=== PATIENT | female | born 1945 | race Caucasian/White ===

== ENCOUNTER 2016-06-21 17:53 | Emergency (ER) | payer MEDICARE ==
[~2016-06-21] VITALS: Ht 157.5 cm; Wt 80.0 kg
[~2016-06-21 17:53] MED LIST: ATOR40TA49; CARD240C6 PO; CLON.5 PO; CRANCAP5 PO; CYMB60CA PO; FEXO180T PO; FISH1000 PO; GABA600T PO; HYDR1INJ IMPLANPUMP; OXYC-360 PO; POLY119S PO; PROT40TA PO; TAB-TAB PO; TIZA4CAP PO; TRAZ100T50 PO; VITA-13 PO
[2016-06-21 17:56] VITALS: BP 155/72; PULSE 68; RESP 20; TEMP 98; O2SAT 92
[2016-06-21] MEDS ORDERED: SODIUM CHLOR 0.9% 1000 ML INJ 1,000 ML IV SCH (20:10)
[2016-06-21] MEDS ORDERED: SODIUM CHLORIDE 0.9% FLUSH 5 ML FLUSH IVF PRN (20:15)
[2016-06-21] MEDS ORDERED: ONDANSETRON HCL 4 MG/2 ML VIAL IVP ONE (20:15)
[2016-06-21 20:43] VITALS: BP 141/72; PULSE 68; RESP 16; O2SAT 98
[2016-06-21] MEDS ORDERED: ATOR40TA16 PO (20:49)
[2016-06-21] MEDS ORDERED: CLON0.5T PO (20:49)
[2016-06-21] MEDS ORDERED: MORP1TAB24 PO (20:49)
[2016-06-21] MEDS ORDERED: VITA10003 PO (20:49)
[2016-06-21] MEDS ORDERED: GABA600T PO (20:49)
[2016-06-21] MEDS ORDERED: FEXO180T PO (20:49)
[2016-06-21] MEDS ORDERED: CARD240C6 PO (20:49)
[2016-06-21] MEDS ORDERED: CYMB60CA PO (20:49)
[2016-06-21] MEDS ORDERED: PERC5TAB12 PO (20:50)
[2016-06-21] MEDS ORDERED: TIZA4CAP3 PO (20:50)
[2016-06-21] MEDS ORDERED: PROT40TA PO (20:50)
[2016-06-21] MEDS ORDERED: TRAZ100T4 PO (20:50)
[2016-06-21 20:57] LABS: AUTOMATED NEUTROPHIL # 10.2 TH/MM3 (1.8-7.7); BASOPHIL % 0.1 % (0.0-2.0); EOSINOPHIL # 0.1 TH/MM3 (0-0.4); EOSINOPHIL % 0.9 % (0.0-4.0); HEMATOCRIT 41.1 % (35.0-46.0); HEMO FLAGS DIFF FINAL; LYMPHOCYTE # 2.8 TH/MM3 (1.0-4.8); MEAN CELL VOLUME 88.4 FL (80.0-100.0); MEAN CORPUSCULAR HEMOGLOBIN 29.9 PG (27.0-34.0); MEAN CORPUSCULAR HGB CONC 33.9 % (32.0-36.0); MONO % 5.7 % (0.0-8.0); NEUT % 73.3 % (16.0-70.0); PLATELET COUNT 318 TH/MM3 (150-450); RED BLOOD COUNT 4.65 MIL/MM3 (4.00-5.30); WHITE BLOOD COUNT 13.9 TH/MM3 (4.0-11.0)
[2016-06-21 21:00] LABS: APTT (PATIENT) 24.5 SEC (24.3-30.1); INTERNATIONAL NORMALIZED RATIO 0.9 RATIO; PROTHROMBIN TIME - PATIENT 10.3 SEC (9.8-11.6)
[2016-06-21 21:15] LABS: ALKALINE PHOSPHATASE 83 U/L (45-117); ALT (GPT) 26 U/L (10-53); ANION GAP 7 MEQ/L (5-15); AST (GOT) 14 U/L (15-37); BICARBONATE 32.9 MEQ/L (21.0-32.0); BLOOD UREA NITROGEN 8 MG/DL (7-18); CHLORIDE 95 MEQ/L (98-107); GLOMERULAR FILTRATION RATE 52 ML/MIN (>89); POTASSIUM 3.3 MEQ/L (3.5-5.1); SODIUM (NA) 135 MEQ/L (136-145); TOTAL BILIRUBIN ADULT 0.9 MG/DL (0.2-1.0)
--- NOTE | 2016-06-21 21:17 | PD ---
HPI Chief Complaint: GI Complaint Time Seen by Provider: 20:09 Travel History International Travel<30 days: No Contact w/Intl Traveler<30days: No Traveled to known affect area: No History of Present Illness HPI The patient is a 70 year old female who presents to the [facility] emergency department with a history of rectal pain and back pain that she reports became much worse than usual last night. The patient reports that she suffers with chronic constipation and has been increasingly constipated over the last week. She did move her bowels in small amount last night. She reports that it was extremely painful to do. She reports that she has burning around her rectum and pain in her low back associated with trying to move her bowels. She reports that last night she had a subjective fever. She reports having nausea but no vomiting. She denies having any dysuria, hematuria, urinary urgency, or frequency. The patient has a history of chronic constipation since childhood. Her last colonoscopy was reportedly a urine half ago and reportedly unremarkable. She reports that the only way that she can move her bowels is to make them a liquid. She reports that she's been using Ex- Lax and then Senokot to do this. She denies being on any other medications for constipation. She reports that her primary care doctor is Dr. Rashad boyd. She last saw him in October 2015. The patient has a history of chronic back pain and is on morphine for pain. She also has an implantable pain pump for pain. She denies having any recent changes in her pain management regimen. The patient reports having a chest pressure and increased anxiety attacks related to her constipation and rectal pain. The patient denies any recent cough, congestion, neck pain, shortness of breath, or neurologic symptoms. [facility] Past Medical History Narrative Medical The patient's past medical history is significant for chronic back pain, history of anxiety disorder, history of chronic constipation, history of depression, arthritis, factor V Leiden blood disorder, history of hypertension, chronic kidney disease, history of sciatica. Arthritis: Yes Anxiety: Yes Depression: Yes Cancer: No Cardiovascular Problems: Yes (HTN) High Cholesterol: Yes Diabetes: No Endocrine: No Gastrointestinal Disorders: Yes (achalasia ) Glaucoma: No Genitourinary: Yes (kidney failure 3 years ago some percentage of failure at this point, INCONT) Hepatitis: No Hiatal Hernia: No Hypertension: Yes Immune Disorder: No Medical other: Yes (CHRONIC BACK PAIN and migraines as a child into early 20's) Musculoskeletal: Yes (arthritis,back and hips plus knees) Neurologic: Yes (8 mos ago had a fall and hit face down/headaches/migraines) Psychiatric: Yes (depression and anxiety) Reproductive: No Respiratory: No Migraines: Yes Renal Failure: Yes Thyroid Disease: No Tetanus Vaccination: < 5 Years Influenza Vaccination: No Past Surgical History Narrative Surgical The patient's past surgical history is significant for hemorrhoidal tag removal , hysterectomy, breast augmentation, repeat breast augmentation in 2007, cosmetic surgery for her eyes, sinus surgery in 1992, spinal cord stimulator implant, hydromorphone pump placement in April 2010. Abdominal Surgery: Yes (BREAST REDUCTION X2,) AICD: No Body Medical Devices: PAIN PUMP R. ABD Cardiac Surgery: No Ear Surgery: No Endocrine Surgery: No Eye Surgery: Yes (LOWER BLEPH) Genitourinary Surgery: No Gynecologic Surgery: Yes (HYSTERECTOMY) Hysterectomy: Yes Joint Replacement: No Oral Surgery: Yes (SINUS SX X2) Pacemaker: No Thoracic Surgery: Yes (BREAST REDUCTION X2) Other Surgery: Yes Social History Alcohol Use: No Tobacco Use: No Substance Use: No Allergies-Medications (Allergen,Severity, Reaction): Coded Allergies: Keflex (Verified Allergy, Severe, PT STATES GEN ILLNESS, BLUE FINGERTIPS, 06/21/16) Septra (Verified Allergy, Severe, PT STATES GENERALIZED ILLNESS, 06/21/16) Sulfa (Verified Allergy, Unknown, Swelling,TEMP, 06/21/16) Reported Meds & Prescriptions Reported Meds & Active Scripts Active Reported Trazodone (Trazodone HCl) 100 Mg Tab 100 Mg PO HS Tizanidine (Tizanidine HCl) 4 Mg Cap 4 Mg PO TID Protonix (Pantoprazole Sodium) 40 Mg Tab 40 Mg PO DAILY Percocet (Oxycodone-Acetaminophen) 5-325 mg Tab 1-2 Tab PO Q6H PRN Morphine ER (Morphine Sulfate) 15 Mg Tab 15 Mg PO DAILY Gabapentin 600 Mg Tab 600 Mg PO TID Fexofenadine (Fexofenadine HCl) 180 Mg Tab 180 Mg PO DAILY Cardizem CD 24 HR (Diltiazem CD 24 HR) 240 Mg Caper 240 Mg PO DAILY Cymbalta DR (Duloxetine HCl) 60 Mg Capdr 60 Mg PO DAILY Clonazepam 0.5 Mg Tab 0.5 Mg PO TID Vitamin D-3 (Cholecalciferol) 1,000 Unit Tab 1,000 Units PO DAILY Atorvastatin (Atorvastatin Calcium) 40 Mg Tab 40 Mg PO HS Review of Systems Except as stated in HPI: all other systems reviewed are Neg General / Constitutional: No: Fever Eyes: No: Visual changes HENT: No: Headaches Cardiovascular: No: Chest Pain or Discomfort Respiratory: No: Shortness of Breath Gastrointestinal: Positive: Nausea, No: Vomiting, Diarrhea, Abdominal Pain, Constipation Genitourinary: No: Urgency, Frequency, Dysuria, Flank Pain Musculoskeletal: No: Pain Skin: No Rash Neurologic: No: Weakness, Focal Abnormalities, Coordination Problem, Change in Mentation, Slurred Speech, Sensory Disturbance Psychiatric: No: Depression Endocrine: No: Polydipsia Hematologic/Lymphatic: No: Easy Bruising Physical Exam Narrative General: The patient is a well-developed well-nourished female in no acute distress. Head and Neck exam: Head is normocephalic atraumatic. Eyes: EOMI, pupils are equal round and reactive to light. Nose: Midline septum with pink mucous membranes Mouth: Dentition unremarkable. Moist mucus membranes. Posterior oropharynx is not erythematous. No tonsillar hypertrophy. Uvula midline. Airway patent. Neck: No palpable lymphadenopathy. No nuchal rigidity. No thyromegaly. Cardiovascular: Regular rate and rhythm without murmurs, gallops, or rubs. No pulse deficit to the extremities. Lungs: Clear to auscultation bilaterally. No wheezes, rhonchi, or rales. Abdomen: Soft, without tenderness to palpation in all 4 quadrants of the abdomen. No guarding, rebound, or rigidity. Normal bowel sounds are audible. Extremities: No clubbing, cyanosis, or edema. 2+ pulses in all 4 extremities. Back: No spinous process tenderness to palpation. No costovertebral angle tenderness to palpation. Neurologic Exam: Grossly nonfocal. Skin Exam: No rash noted. Intact skin that is warm and dry. RECTAL EXAM: The patient has no rectal tenderness on palpation however she does have a noted anal tag, and noninflamed hemorrhoid, no masses are palpable. No palpable fecal impaction. Hemoccult testing was negative. Data Data Last Documented VS Vital Signs Date Time Temp Pulse Resp B/P Pulse Ox O2 Delivery O2 Flow Rate FiO2 06/22/16 00:14 84 18 136/78 98 Room Air 06/21/16 17:56 98.0 Orders Complete Blood Count With Diff (06/21/16 20:10) Comprehensive Metabolic Panel (06/21/16 20:10) Lipase (06/21/16 20:10) Prothrombin Time / Inr (Pt) (06/21/16 20:10) Act Partial Throm Time (Ptt) (06/21/16 20:10) Urinalysis - C+S If Indicated (06/21/16 20:10) Ct Abd/Pel W Iv Contrast(Rout) (06/21/16 20:10) Iv Access Insert/Monitor (06/21/16 20:10) Ecg Monitoring (06/21/16 20:10) Oximetry (06/21/16 20:10) Ondansetron Inj (Zofran Inj) (06/21/16 20:15) Sodium Chlor 0.9% 1000 Ml Inj (Ns 1000 M (06/21/16 20:10) Sodium Chloride 0.9% Flush (Ns Flush) (06/21/16 20:15) Electrocardiogram (06/21/16 20:10) Lactic Acid Sepsis Protocol (06/21/16 20:10) C-Reactive Protein (Crp) (06/21/16 20:10) Iohexol 350 Inj (Omnipaque 350 Inj) (06/21/16 23:55) Potassium Chloride (Kcl) (06/22/16 00:30) Labs Laboratory Tests Test 06/21/16 06/21/16 20:35 21:40 White Blood Count 13.9 TH/MM3 Red Blood Count 4.65 MIL/MM3 Hemoglobin 13.9 GM/DL Hematocrit 41.1 % Mean Corpuscular Volume 88.4 FL Mean Corpuscular Hemoglobin 29.9 PG Mean Corpuscular Hemoglobin 33.9 % Concent Red Cell Distribution Width 14.0 % Platelet Count 318 TH/MM3 Mean Platelet Volume 8.0 FL Neutrophils (%) (Auto) 73.3 % Lymphocytes (%) (Auto) 20.0 % Monocytes (%) (Auto) 5.7 % Eosinophils (%) (Auto) 0.9 % Basophils (%) (Auto) 0.1 % Neutrophils # (Auto) 10.2 TH/MM3 Lymphocytes # (Auto) 2.8 TH/MM3 Monocytes # (Auto) 0.8 TH/MM3 Eosinophils # (Auto) 0.1 TH/MM3 Basophils # (Auto) 0.0 TH/MM3 CBC Comment DIFF FINAL Differential Comment Prothrombin Time 10.3 SEC Prothromb Time International 0.9 RATIO Ratio Activated Partial 24.5 SEC Thromboplast Time Sodium Level 135 MEQ/L Potassium Level 3.3 MEQ/L Chloride Level 95 MEQ/L Carbon Dioxide Level 32.9 MEQ/L Anion Gap 7 MEQ/L Blood Urea Nitrogen 8 MG/DL Creatinine 1.06 MG/DL Estimat Glomerular Filtration 52 ML/MIN Rate Random Glucose 113 MG/DL Lactic Acid Level 1.0 mmol/L Calcium Level 9.0 MG/DL Total Bilirubin 0.9 MG/DL Aspartate Amino Transf 14 U/L (AST/SGOT) Alanine Aminotransferase 26 U/L (ALT/SGPT) Alkaline Phosphatase 83 U/L C-Reactive Protein LESS THAN 0.29 MG/DL Total Protein 7.7 GM/DL Albumin 4.0 GM/DL Lipase 81 U/L Urine Color COLORLESS Urine Turbidity CLEAR Urine pH 6.5 Urine Specific [place] 1.002 Urine Protein NEG mg/dL Urine Glucose (UA) NEG mg/dL Urine Ketones NEG mg/dL Urine Occult Blood NEG Urine Nitrite NEG Urine Bilirubin NEG Urine Urobilinogen LESS THAN 2.0 MG/DL Urine Leukocyte Esterase NEG Urine RBC 1 /hpf Urine WBC LESS THAN 1 /hpf Urine Squamous Epithelial <1 /hpf Cells Microscopic Urinalysis Comment CULT NOT INDICATED MDM Medical Decision Making Medical Screen Exam Complete: Yes Emergency Medical Condition: Yes Medical Record Reviewed: Yes Interpretation(s) Laboratory Tests Test 06/21/16 06/21/16 20:35 21:40 White Blood Count 13.9 TH/MM3 Red Blood Count 4.65 MIL/MM3 Hemoglobin 13.9 GM/DL Hematocrit 41.1 % Mean Corpuscular Volume 88.4 FL Mean Corpuscular Hemoglobin 29.9 PG Mean Corpuscular Hemoglobin 33.9 % Concent Red Cell Distribution Width 14.0 % Platelet Count 318 TH/MM3 Mean Platelet Volume 8.0 FL Neutrophils (%) (Auto) 73.3 % Lymphocytes (%) (Auto) 20.0 % Monocytes (%) (Auto) 5.7 % Eosinophils (%) (Auto) 0.9 % Basophils (%) (Auto) 0.1 % Neutrophils # (Auto) 10.2 TH/MM3 Lymphocytes # (Auto) 2.8 TH/MM3 Monocytes # (Auto) 0.8 TH/MM3 Eosinophils # (Auto) 0.1 TH/MM3 Basophils # (Auto) 0.0 TH/MM3 CBC Comment DIFF FINAL Differential Comment Prothrombin Time 10.3 SEC Prothromb Time International 0.9 RATIO Ratio Activated Partial 24.5 SEC Thromboplast Time Sodium Level 135 MEQ/L Potassium Level 3.3 MEQ/L Chloride Level 95 MEQ/L Carbon Dioxide Level 32.9 MEQ/L Anion Gap 7 MEQ/L Blood Urea Nitrogen 8 MG/DL Creatinine 1.06 MG/DL Estimat Glomerular Filtration 52 ML/MIN Rate Random Glucose 113 MG/DL Lactic Acid Level 1.0 mmol/L Calcium Level 9.0 MG/DL Total Bilirubin 0.9 MG/DL Aspartate Amino Transf 14 U/L (AST/SGOT) Alanine Aminotransferase 26 U/L (ALT/SGPT) Alkaline Phosphatase 83 U/L C-Reactive Protein LESS THAN 0.29 MG/DL Total Protein 7.7 GM/DL Albumin 4.0 GM/DL Lipase 81 U/L Urine Color COLORLESS Urine Turbidity CLEAR Urine pH 6.5 Urine Specific [place] 1.002 Urine Protein NEG mg/dL Urine Glucose (UA) NEG mg/dL Urine Ketones NEG mg/dL Urine Occult Blood NEG Urine Nitrite NEG Urine Bilirubin NEG Urine Urobilinogen LESS THAN 2.0 MG/DL Urine Leukocyte Esterase NEG Urine RBC 1 /hpf Urine WBC LESS THAN 1 /hpf Urine Squamous Epithelial <1 /hpf Cells Microscopic Urinalysis Comment CULT NOT INDICATED Last Impressions Abdomen/Pelvis CT 06/21/162009 Signed Impressions: Service Date/Time: Tuesday, June 21, 2016 23:38 - CONCLUSION: 1. No acute abnormality is seen. 2. Small hypodensities in the liver and spleen likely related to cysts and/or hemangiomas. Darius Rodriguez MD Differential Diagnosis Opiate-induced constipation, versus chronic constipation, versus colitis, versus diverticulitis, versus dehydration, versus electrolyte abnormality Narrative Course During the course of the patients emergency department visit, the patients history, examination, and differential diagnosis were reviewed with the patient. The patient had IV access obtained and blood work sent for analysis. The patient was placed on a groundwater monitoring technician with oximetry and blood pressure monitoring. An EKG was done on arrival. The patient's EKG shows a sinus bradycardia heart rate of 49 voltage criteria for LVH is present. No acute ST segment elevation is noted. T waves are inverted in V1, aVL. A CT scan of the abdomen and pelvis has been ordered. The patient was provided normal saline at 125 mL per hour, Zofran 4 mg IV for nausea. The patient was noted to have mild hypokalemia and was given potassium chloride 20 mEq by mouth 1. The patients laboratory studies were reviewed and remarkable for a white count of 13.9, hemoglobin 13.9, platelets 318 with neutrophils 73.3, CMP is remarkable for sodium of 135, potassium 3.3, chloride 95, bicarbonate 32.9, creatinine 1.06, glucose 113, lactic acid 1.0, AST 14, C-reactive protein is less than 0.29 decreasing the likelihood of a bacterial infection, lipase 81, PT PTT unremarkable. Urinalysis within normal limits. Radiology studies were reviewed and remarkable for a CT scan of the abdomen and pelvis that shows no acute abnormality. Given the patient's chronic opiate use for chronic pain and a history of constipation, the patient will be given a trial of Lubiprostone. The patient was given a prescription at discharge for was given a copy of her CT scan result to discuss further with her mutuel machine operator, Dr. Sánchez and her primary care physician. The patient is resting comfortably and feels better, is alert and in no distress. The patients results and examination findings were discussed with the patient and the patient's . The repeat examination is unremarkable and benign. The history, exam, diagnostic testing, and current condition do not suggest any significant pathology to warrant further testing, continued ED treatment, admission, or surgical evaluation at this point. The vital signs have been stable. The patient does not have uncontrollable pain, intractable vomiting, or other significant symptoms. The patient's condition is stable and appropriate for discharge. The patient will pursue further outpatient evaluation with a primary care physician or other designated or consulting physician as indicated in the discharge instructions. The patient expressed understanding and was agreeable with this plan. Diagnosis Primary Impression: Constipation Qualified Code: K59.03 - Drug-induced constipation Additional Impression: Rectal pain Referrals: Jessy Sánchez MD 1 week Primary Care Physician 3 days Patient Instructions: Constipation (ED), General Instructions, Rectal Pain (ED) Med/Other Pt SpecificInfo: Prescription(s) given Scripts Lubiprostone (Amitiza)8 Mcg Cap8 Mg PO BID 7 Days Ref 0 Prov:Meera Gaytan MD 06/22/16 Disposition: 01 DISCHARGE HOME Condition: Stable Meera Gaytan MD Jun 21, 2016 21:17
[2016-06-21 22:26] LABS: BLOOD, URINE NEG (NEG); COMMENT (UR) CULT NOT INDICATED; CULTURE IF INDICATED CULT NOT INDICATED; GLUCOSE,URINE NEG (NEG); KETONE, URINE NEG (NEG); NITRITE,URINE NEG (NEG); PH, URINE 6.5 (5.0-8.5); SQUAMOUS EPITHELIAL CELL URINE <1 /hpf (0-5); URINE COLOR COLORLESS (YELLW/STRAW)
[2016-06-21] MEDS ORDERED: IOHEXOL 350 MG/ML 10 ML VIAL (for RAD DIAG) IV ONE (23:55)
[2016-06-22 00:14] VITALS: BP 136/78; PULSE 84; RESP 18; O2SAT 98
--- NOTE | 2016-06-22 00:19 | RADRPT ---
EXAM DATE/TIME: 06/21/2016 23:38 [facility] COMPARISON: No previous studies available for comparison. INDICATIONS : Constipation IV CONTRAST: 95 cc Omnipaque 350 (iohexol) IV ORAL CONTRAST: No oral contrast ingested. RADIATION DOSE: 10.69 CTDIvol (mGy) MEDICAL HISTORY : None SURGICAL HISTORY : Hysterectomy. Morphine pump ENCOUNTER: Initial ACUITY: 3 days PAIN SCALE: 6/10 LOCATION: Bilateral lower quadrant TECHNIQUE: Volumetric scanning of the abdomen and pelvis was performed. Using automated exposure control and ad justment of the mA and/or kV according to patient size, radiation dose was kept as low as reasonably achievable to obtain optimal diagnostic quality images. FINDINGS: LOWER LUNGS: The visualized lower lungs are clear. LIVER: There is a 1.4 cm hypodensity at the lateral right lobe of the liver likely related to cyst or flaco ioma. SPLEEN: There is a subcentimeter hypodensity in the superior lateral aspect of the spleen. PANCREAS: Within normal limits. KIDNEYS: Normal in size and shape. There is no mass, stone or hydronephrosis. ADRENAL GLANDS: Within normal limits. VASCULAR: There is no aortic aneurysm. BOWEL/MESENTERY: The stomach, small bowel, and colon demonstrate no acute abnormality. There is no free intraperitone al air or fluid. ABDOMINAL WALL: There is a metallic device in the right anterior abdominal wall with the lead or catheter extending to the spinal canal. There appears to be a second piece of catheter or lead in the lumbar thecal sac. RETROPERITONEUM: There is no lymphadenopathy. BLADDER: No wall thickening or mass. REPRODUCTIVE: Within normal limits. INGUINAL: There is no lymphadenopathy or hernia. MUSCULOSKELETAL: Is a right hip prosthesis in place. There is degenerative change in the spine. CONCLUSION: 1. No acute abnormality is seen. 2. Small hypodensities in the liver and spleen likely related to cysts and/or hemangiomas. Darius Rodriguez MD on June 22, 2016 at 0:07 Board Certified Radiologist. This report was verified electronically.
[2016-06-22] MEDS ORDERED: POTASSIUM CHLORIDE 20 MEQ CONTROLLED RELEASE TAB PO ONE (00:30)
[2016-06-22] MEDS ORDERED: AMIT8CAP6 PO (00:41)
== END 2016-06-22 00:58 | disposition home or self-care (01) ==
LOC: NEPC 17:53
DX: K59.03 Drug induced constipation (principal); K62.89 Other specified diseases of anus and rectum; M54.5 Low back pain; R50.9 Fever, unspecified; E87.6 Hypokalemia; R00.1 Bradycardia, unspecified; I12.9 Hypertensive chronic kidney disease with stage 1 through stage 4 chronic kidney disease, or unspecified chronic kidney disease; N18.9 Chronic kidney disease, unspecified; E78.00 Pure hypercholesterolemia, unspecified; Z87.39 Personal history of other diseases of the musculoskeletal system and connective tissue; Z86.59 Personal history of other mental and behavioral disorders; Z86.2 Personal history of diseases of the blood and blood-forming organs and certain disorders involving the immune mechanism; Z87.19 Personal history of other diseases of the digestive system; Z87.448 Personal history of other diseases of urinary system; Z86.69 Personal history of other diseases of the nervous system and sense organs
CPT/HCPCS: 74177; 80053; 81001; 83605; 83690; 85025; 85610; 85730; 86140; 96361; 96374; 99284; J2405; J7030; Q9967

== ENCOUNTER 2018-03-01 06:56 | Observation (INO) ==
[2018-03-01] MEDS ORDERED: Dicyclomine Inj 20 MG/2 ML Ampul IM ONE (06:57)
--- NOTE | 2018-03-01 07:08 | ED ---
HPI General Chief Complaint: Abdominal Pain Stated Complaint: Abd pain Time Seen by Provider: 03/01/18 06:57 History of Present Illness HPI narrative: This is a 72-year-old with a history of, hypertension, presents today with complaints of abdominal pain with distention and nausea vomiting diarrhea. Patient was prepping for a upper and lower endoscopy for today. She apparently reports that overnight she had severe distention with associated nausea vomiting and diarrhea. She reports that the endoscopy and colonoscopy were to evaluate for a subacute GI bleed. She denies any fevers, chills. She denies any obvious blood in her stool or vomit. There are no other complaints at the time of examination. Related Data Home Medications Medication Instructions Recorded Confirmed Unable to Obtain Home Meds 03/01/18 03/01/18 Allergies Allergy/AdvReac Type Severity Reaction Status Date / Time cephalexin Allergy Severe PT STATES Verified 03/01/18 07:07 GEN ILLNESS, BLUE FINGERTIPS sulfamethoxazole Allergy Severe PT STATES Verified 03/01/18 07:07 GENERALIZED ILLNESS trimethoprim Allergy Severe PT STATES Verified 03/01/18 07:07 GENERALIZED ILLNESS Sulfa (Sulfonamide Allergy Unknown Swelling,TE Verified 03/01/18 07:07 Antibiotics) MP Review of Systems Constitutional Denies chills and Denies fever(s) Eyes Reports system reviewed and no additional complaints, except as docu ENT Reports system reviewed and no additional complaints, except as docu Cardiovascular Denies chest pain and Denies dyspnea Respiratory Denies chest congestion and Denies dyspnea Gastrointestinal Reports abdominal pain, Denies melena, Reports bloating, Denies hematochezia, Reports diarrhea, Reports nausea and Reports vomiting Genitourinary Reports system reviewed and no additional complaints, except as docu Musculoskeletal Reports system reviewed and no additional complaints, except [facility] Neurologic Reports system reviewed and no additional complaints, except as docu PMFSH Medical History Medical History Chronic recurrent major depressive disorder (Acute) Anxiety (Acute) Hypertension (Acute) CKD (chronic kidney disease) stage 3, GFR 30-59 ml/min (Acute) Chronic back pain (Acute) Depression (Acute) Factor V Leiden mutation (Acute) GERD (gastroesophageal reflux disease) (Acute) Hyperlipidemia (Acute) Presence of implanted infusion pump (Acute) Surgical History Surgical History History of hip replacement (Acute) History of vaginal hysterectomy (Acute) Hx of breast reduction, elective (Acute) Hx of colonoscopy (Acute) Status post breast reduction (Acute) Status post total hip replacement, bilateral (Acute) Family History Family History Father Laryngeal cancer Mother Alzheimer's dementia Family history of hypertension Social History Social History Substance History: No History of Abuse Second Hand Smoke Exposure: No Smoking Status: Former smoker Smoking End Date: 1979 How Often Do You Have a Drink Containing Alcohol: Monthly or less Recent Travel in [facility] within the Last 8 Weeks: No Recent Out of Country Travel within the Last 8 Weeks: No Exam Narrative Exam Narrative: GENERAL: Well-developed well-nourished female who appears weak in no acute respiratory distress. SKIN: Focused skin assessment warm/dry. HEAD: Atraumatic. Normocephalic. EYES: No scleral icterus. No injection or drainage. ENT: No nasal bleeding or discharge. Mucous membranes pink and moist. NECK: Trachea midline. Supple. CARDIOVASCULAR: Regular rate and rhythm. No murmur appreciated. RESPIRATORY: No accessory muscle use. Clear to auscultation. Breath sounds equal bilaterally. GASTROINTESTINAL: Abdomen soft, nondistended. She reports crampy discomfort. There is no rebound or guarding elicited on exam. MUSCULOSKELETAL: No obvious deformities. No clubbing. No cyanosis. No edema. NEUROLOGICAL: Awake and alert. No obvious cranial nerve deficits. Motor grossly within normal limits. Normal speech. Course Initial Documented Vital Signs Temperature 98.4 F 03/01/18 07:00 Pulse Rate 60 03/01/18 07:00 Respiratory Rate 14 03/01/18 07:00 Blood Pressure 151/67 H 03/01/18 07:00 Pulse Oximetry 95 03/01/18 07:00 Last Documented Vital Signs Temperature 98.4 F 03/01/18 07:00 Pulse Rate 60 03/01/18 07:00 Respiratory Rate 14 03/01/18 07:00 Blood Pressure 151/67 H 03/01/18 07:00 Pulse Oximetry 95 03/01/18 07:00 Medical Decision Making MDM Narrative Medical decision making narrative: 72-year-old female who presents with nausea vomiting diarrhea. Patient was prepping for a upper and lower endoscopy. The patient is noted to have a sodium of 122. Her BUN and creatinine are stable. Given the fact that her sodium is still low and her baseline is 130s, she will be admitted for observation. She was started on normal saline at 84 cc/h. She has been given Bentyl IM as well. Case was discussed with Dr. Leonid Dumont, [facility] admitting physician who agrees with the above plan. Medical Screen Exam Complete: Yes Emergency Medical Condition: Yes Differential Diagnosis Differential Diagnosis: Medication induced nausea vomiting diarrhea versus bowel obstruction versus perforated viscus Lab Data Result diagrams: 03/01/18 07:15 03/01/18 07:15 Lab Results 03/01/18 03/01/18 03/01/18 Range/Units 07:15 07:15 07:15 CBC w Diff Auto diff final WBC 5.8 (4.0-11.0) th/mm3 RBC 4.57 (4.00-5.30) mil/mm3 Hgb 12.8 (11.6-15.3) gm/dL Hct 36.8 (35.0-46.0) % MCV 80.5 (80.0-100.0) fL MCH 28.1 (27.0-34.0) pg MCHC 34.9 (32.0-36.0) % RDW 13.7 (11.6-17.2) % Plt Count 289 (150-450) th/mm3 MPV 7.4 (7.0-11.0) fL Neut % (Auto) 78.1 H (16.0-70.0) % Lymph % (Auto) 13.7 (9.0-44.0) % [place] % (Auto) 6.9 (0.0-8.0) % Eos % (Auto) 0.4 (0.0-4.0) % Baso % (Auto) 0.9 (0.0-2.0) % Neut # (Auto) 4.5 (1.8-7.7) th/mm3 Lymph # (Auto) 0.8 L (1.0-4.8) th/mm3 [place] # (Auto) 0.4 (0.0-0.9) th/mm3 Eos # (Auto) 0.0 (0.0-0.4) th/mm3 Baso # (Auto) 0.1 (0.0-0.2) th/mm3 WBC Differential . Differential Comment . Sodium 122 L* (136-145) meq/L Potassium 4.0 (3.5-5.1) meq/L Chloride 82 L (98-107) meq/L Carbon Dioxide 31.5 (21.0-32.0) meq/L Anion Gap 9 (5-15) meq/L BUN 9 (7-18) mg/dL Creatinine 0.84 (0.50-1.00) mg/dL Estimated GFR 67 L (>89) mL/min Random Glucose 113 H (74-106) mg/dL Calcium 9.1 (8.5-10.1) mg/dL Magnesium 2.4 (1.5-2.5) mg/dL Total Bilirubin 0.8 (0.2-1.0) mg/dL AST 19 (15-37) U/L ALT 21 (10-53) U/L Alkaline Phosphatase 122 H (45-117) U/L Total Creatine Kinase 110 (26-192) U/L CK-MB (CK-2) 1.4 (0.5-3.6) ng/mL Troponin I Less than 0.02 L (0.02-0.05) ng/mL Total Protein 7.5 (6.4-8.2) g/dL Albumin 3.7 (3.4-5.0) g/dL Lipase 49 L (73-393) U/L Imaging Data Radiologist's impression: Abdomen X-Ray 03/01/18 07:00 CONCLUSION: Minimal gas distention otherwise negative Discharge Plan Discharge Disposition Patient Disposition: 30 Still Patient Discharge Details Diagnosis: Nausea, vomiting and diarrhea, Hypertension, Hyponatremia Physicians Team ED Provider: Patrick Quintana Primary Care Provider: Rashad Marie Attending Provider: Leonid Dumont Status ED Status: Admitted Observation Patient
[2018-03-01 07:34] LABS: Baso # (Auto) 0.1 th/mm3 (0.0-0.2); Baso % (Auto) 0.9 % (0.0-2.0); Eos % (Auto) 0.4 % (0.0-4.0); Hematocrit 36.8 % (35.0-46.0); Hemoglobin 12.8 gm/dL (11.6-15.3); Lymph # (Auto) 0.8 th/mm3 (1.0-4.8); Lymph % (Auto) 13.7 % (9.0-44.0); Mean Corpuscular HGB Conc 34.9 % (32.0-36.0); Mean Corpuscular Hemoglobin 28.1 pg (27.0-34.0); Mean Corpuscular Volume 80.5 fL (80.0-100.0); Mean Platelet Volume 7.4 fL (7.0-11.0); Mono # (Auto) 0.4 th/mm3 (0.0-0.9); Mono % (Auto) 6.9 % (0.0-8.0); Neut # (Auto) 4.5 th/mm3 (1.8-7.7); Neut % (Auto) 78.1 % (16.0-70.0); Platelet Count 289 th/mm3 (150-450); Red Blood Count 4.57 mil/mm3 (4.00-5.30); Red Cell Distribution Width 13.7 % (11.6-17.2); White Blood Count 5.8 th/mm3 (4.0-11.0)
[2018-03-01] MEDS: Sod Chloride 0.9% Inj 1,000 ML IV.CONT SCH ×2 (07:34→21:00)
[2018-03-01 07:52] LABS: Creatine Kinase 110 U/L (26-192)
[2018-03-01 08:04] LABS: Creatine Kinase MB 1.4 ng/mL (0.5-3.6)
[2018-03-01 08:09] LABS: Anion Gap 9 meq/L (5-15); Blood Urea Nitrogen 9 mg/dL (7-18); Carbon Dioxide 31.5 meq/L (21.0-32.0); Chloride 82 meq/L (98-107); Glomerular Filtration Rate 67 mL/min (>89); Glucose,Random 113 mg/dL (74-106)
[2018-03-01 08:10] LABS: Alanine Aminotransferase 21 U/L (10-53); Albumin 3.7 g/dL (3.4-5.0); Alkaline Phosphatase 122 U/L (45-117); Aspartate Aminotransferase 19 U/L (15-37); Calcium 9.1 mg/dL (8.5-10.1); Lipase 49 U/L (73-393); Magnesium 2.4 mg/dL (1.5-2.5); Total Protein 7.5 g/dL (6.4-8.2)
[2018-03-01 08:11] LABS: Sodium 122 meq/L (136-145)
--- NOTE | 2018-03-01 08:33 | XR ---
EXAM DATE: 03/01/2018 7:35 AM EDT AGE/SEX: 72 years / Female INDICATIONS: Abdominal pain and distention, started after taking bowel prep for a colonoscopy. CLINICAL DATA: This is the patient's initial encounter. Patient reports that signs and symptoms have been present for 1 day and indicates a pain score of 7/10. MEDICAL/SURGICAL HISTORY: None. Hysterectomy. Morphine pump. Total hip replacement. COMPARISON: No prior exams available for comparison. FINDINGS: The lung bases are clear. Scattered gas-filled minimally dilated loops of transverse colon are noted. There is no free air. The portion of the bony skeleton visualized is unremarkable. .. CONCLUSION: Minimal gas distention otherwise negative Electronically signed by: Fer Davis MD 03/01/2018 8:32 AM EDT
--- NOTE | 2018-03-01 08:42 | P.HP ---
History of Present Illness Service: [facility] adult med Primary Care Physician: Rashad Marie MD Chief Complaint: abd pain, n/v/diarrhea History of Present Illness: This is a 72-year-old with a history of MDD, anxiety, hypertension, presents today with complaints of abdominal pain with distention and nausea vomiting diarrhea. Patient was prepping for a upper and lower endoscopy for today. She apparently reports that overnight she had severe distention with associated nausea vomiting and diarrhea. No fevers. She has chronic anemia which is reason for her planned scopes. She reports that the endoscopy and colonoscopy were to evaluate for a subacute GI bleed. She denies any fevers, chills. She denies any obvious blood in her stool or emesis. There are no other complaints at the time of examination. No CP or SOB. She is a bit tired as she didn't sleep much last night. She is notably on dilaudid pain pump and has been for years. she is not sure of rate/dose. - Diagnosis (1) Nausea, vomiting and diarrhea (2) Hyponatremia (3) Anxiety (4) Hypertension (5) Chronic recurrent major depressive disorder Review of Systems Constitutional: Reports body ache(s), Reports fatigue, Reports lack of energy, Reports malaise, Reports weakness, Denies anorexia, Denies chills, Denies daytime sleepiness, Denies excessive sweating, Denies fever(s), Denies headache( s), Denies increased appetite, Denies night sweats, Denies weight gain, Denies weight loss, Denies other Eyes: Reports dry eyes Cardiovascular: Denies chest pain, Denies chest pain at rest, Denies chest pain with activity, Denies excessive sweating, Denies fainting, Denies fast heart rate, Denies foot swelling, Denies generalized swelling, Denies irregular heart rhythm, Denies leg pain with activity, Denies leg sores, Denies leg swelling, Denies lightheadedness, Denies radiating jaw, neck or arm pain, Denies rapid, pounding, or irregular heartbeat, Denies shortness of breath, Denies shortness of breath with activity, Denies shortness of breath when lying down, Denies shortness of breath causing sudden awakening, Denies slow heart rate, Denies other Respiratory: Denies change in phlegm color, Denies chest congestion, Denies cough, Denies coughing up blood, Denies excessive phlegm production, Denies pain on inspiration, Denies pain with cough, Denies shortness of breath, Denies shortness of breath with activity, Denies snoring, Denies stridor, Denies wheezing, Denies other Gastrointestinal: Reports abdominal pain, Reports bloating, Reports change in bowel habits, Reports constipation, Reports cramping, Reports loose stools, Reports nausea, Reports vomiting, Denies belching, Denies black, tarry stools, Denies bright, red blood in stools, Denies constant urge to pass stool, Denies change in stools, Denies coffee ground vomit, Denies difficulty swallowing, Denies excessive passing of gas, Denies feeling full early, Denies heartburn, Denies incontinent of stools, Denies pain with swallowing, Denies vomiting blood , Denies other Genitourinary: Reports frequent nighttime urination Musculoskeletal: Reports abnormal walking, Reports body aches, Reports joint pain Psychiatric: Reports anxiety, Reports depression PMFSH - History History Provided By: Patient, Family Member, Apprentice Lineman [employer] / EMT - Medical History Medical History: Medical History (Last Updated 03/01/18 @ 08:29 by Leonid Dumont MD, PhD) Chronic recurrent major depressive disorder (Acute) Anxiety (Acute) Hypertension (Acute) CKD (chronic kidney disease) stage 3, GFR 30-59 ml/min Chronic back pain Depression Factor V Leiden mutation GERD (gastroesophageal reflux disease) Hyperlipidemia Presence of implanted infusion pump - Surgical History Surgical History: Surgical History (Last Updated 03/01/18 @ 08:36 by Leonid Dumont MD, PhD) History of hip replacement History of vaginal hysterectomy Hx of breast reduction, elective Hx of colonoscopy Status post breast reduction Status post total hip replacement, bilateral - Family History Family History: Family History (Last Updated 03/01/18 @ 08:28 by Leonid Dumont MD, PhD) Father Laryngeal cancer Mother Alzheimer's dementia Family history of hypertension - Social History I have reviewed the patient's Social History: Yes - Tobacco History Second Hand Smoke Exposure: No Tobacco Use In Past 30 Days: No Smoking Status: Former smoker Smoking End Date: 1979 - Alcohol History How Often Do You Have a Drink Containing Alcohol: Monthly or less - Substance Use History Substance History: No History of Abuse - Travel History Recent Travel in the [place] Within the Last 8 Weeks: No Recent Travel Out of the Country Within the Last 8 Weeks: No - Immunization History Tetanus Immunization: Unsure Medications and Allergies Active Medications: Active Medications Sodium Chloride (Ns Inj) 1,000 mls @ 84 mls/hr IV.CONT .[id number] [facility] Last Admin: 03/01/18 07:34 Dose: 84 mls/hr Sodium Chloride (Ns Flush) 2 ml IV.FLUSH PRN PRN PRN Reason: FLUSH AFTER USING IV ACCESS Allergies Allergy/AdvReac Type Severity Reaction Status Date / Time cephalexin Allergy Severe PT STATES Verified 03/01/18 07:07 GEN ILLNESS, BLUE FINGERTIPS sulfamethoxazole Allergy Severe PT STATES Verified 03/01/18 07:07 GENERALIZED ILLNESS trimethoprim Allergy Severe PT STATES Verified 03/01/18 07:07 GENERALIZED ILLNESS Sulfa (Sulfonamide Allergy Unknown Swelling,TE Verified 03/01/18 07:07 Antibiotics) MP Home Medications Medication Instructions Recorded Confirmed Type atorvastatin 40 mg PO DAILY 03/01/18 03/01/18 History cholecalciferol (vitamin D3) 1,000 unit PO DAILY 03/01/18 03/01/18 History [Vitamin D3] clonazepam 0.5 mg PO BID 03/01/18 03/01/18 History diltiazem HCl 240 mg PO DAILY 03/01/18 03/01/18 History duloxetine 60 mg PO DAILY 03/01/18 03/01/18 History gabapentin 600 mg PO TID 03/01/18 03/01/18 History lactulose 20 g PO BID 03/01/18 03/01/18 History latanoprost 1 drp LEFT EYE QPM 03/01/18 03/01/18 History oxycodone-acetaminophen 1 tab PO BID PRN 03/01/18 03/01/18 History pantoprazole 40 mg PO BID 03/01/18 03/01/18 History tamsulosin 0.4 mg PO DAILY 03/01/18 03/01/18 History tizanidine 4 mg PO TID PRN 03/01/18 03/01/18 History trazodone 100 mg PO HS 03/01/18 03/01/18 History Exam Vital signs: Vital Signs 03/01/18 07:00 Temperature 98.4 F Pulse Rate 60 Respiratory Rate 14 Blood Pressure 151/67 H Pulse Oximetry 95 Intake & Output 10/30/18 10/31/18 10/31/18 18:59 06:59 18:59 Weight 79.5 kg Narrative: GENERAL: a/o, appears mildly ill, sitting on bedside commode in ER room, cooperative SKIN: Warm and dry. HEAD: Atraumatic. Normocephalic. EYES: Pupils equal and round. No scleral icterus. No injection or drainage. ENT: No nasal bleeding or discharge. Mucous membranes pink and moist. NECK: Trachea midline. No JVD. CARDIOVASCULAR: Regular rate and rhythm. No significant murmurs. Rate in 60-70s RESPIRATORY: No accessory muscle use. Clear to auscultation. Breath sounds equal bilaterally. GASTROINTESTINAL: Abdomen soft, mildly distended, ttp in mid lower abd, no g/r, BS slightly hyperactive. MUSCULOSKELETAL: Extremities without clubbing, cyanosis, or edema. No obvious deformities. NEUROLOGICAL: Awake and alert. No obvious cranial nerve deficits. Motor grossly within normal limits. Five out of 5 muscle strength in the arms and legs. Normal speech. PSYCHIATRIC: Appropriate mood and affect; insight and judgment normal. Results - Labs CBC & Chem 7: 03/01/18 07:15 03/01/18 07:15 Labs: Laboratory Results - last 24 hr 03/01/18 03/01/18 03/01/18 07:15 07:15 07:15 CBC w Diff Auto diff final WBC 5.8 RBC 4.57 Hgb 12.8 Hct 36.8 MCV 80.5 MCH 28.1 MCHC 34.9 RDW 13.7 Plt Count 289 MPV 7.4 Neut % (Auto) 78.1 H Lymph % (Auto) 13.7 [place] % (Auto) 6.9 Eos % (Auto) 0.4 Baso % (Auto) 0.9 Neut # (Auto) 4.5 Lymph # (Auto) 0.8 L [place] # (Auto) 0.4 Eos # (Auto) 0.0 Baso # (Auto) 0.1 WBC Differential . Differential Comment . Sodium 122 L* Potassium 4.0 Chloride 82 L Carbon Dioxide 31.5 Anion Gap 9 BUN 9 Creatinine 0.84 Estimated GFR 67 L Random Glucose 113 H Calcium 9.1 Magnesium 2.4 Total Bilirubin 0.8 AST 19 ALT 21 Alkaline Phosphatase 122 H Total Creatine Kinase 110 CK-MB (CK-2) 1.4 Troponin I Less than 0.02 L Total Protein 7.5 Albumin 3.7 Lipase 49 L Caprini VTE Risk Assessment Caprini VTE Risk Assessment: Moderate/High Risk (score >= 2) Caprini Risk Assessment Model: Point Value = 1 Point Value = 2 Point Value = 3 Point Value = 5 Age 41-60 Minor surgery BMI > 25 kg/m2 Swollen legs Varicose veins or History of unexplained or recurrent spontaneous Oral contraceptives or hormone replacement Sepsis (< 1 month) Serious lung disease, including pneumonia (< 1 month) Abnormal pulmonary function Acute myocardial infarction Congestive heart failure (< 1 month) History of inflammatory bowel disease Medical patient at bed rest Age 61-74 Arthroscopic surgery Major open surgery (> 45 min) Laparoscopic surgery (> 45 min) Malignancy Confined to bed (> 72 hours) Immobilizing plaster cast Central venous access Age >= 75 History of VTE Family history of VTE Factor V Leiden Prothrombin [id number] Lupus anticoagulant Anticardiolipin antibodies Elevated serum homocysteine Heparin-induced thrombocytopenia Other congenital or acquired thrombophilia Stroke (< 1 month) Elective arthroplasty Hip, pelvis, or leg fracture Acute spinal cord injury (< 1 month) Prophylaxis Regimen: Total Risk Factor Score Risk Level Prophylaxis Regimen 0-1 Low Early ambulation 2 Moderate Order ONE of the following: *Sequential Compression Device (SCD) *Heparin 5000 units SQ BID 3-4 Higher Order ONE of the following medications: *Heparin 5000 units SQ TID *Enoxaparin/Lovenox 40 mg SQ daily (WT < 150 kg, CrCl > 30 mL/min) *Enoxaparin/Lovenox 30 mg SQ daily (WT < 150 kg, CrCl > 10-29 mL/min) *Enoxaparin/Lovenox 30 mg SQ BID (WT < 150 kg, CrCl > 30 mL/min) AND/OR *Sequential Compression Device (SCD) 5 or more Highest Order ONE of the following medications: *Heparin 5000 units SQ TID (Preferred with Epidurals) *Enoxaparin/Lovenox 40 mg SQ daily (WT < 150 kg, CrCl > 30 mL/min) *Enoxaparin/Lovenox 30 mg SQ daily (WT < 150 kg, CrCl > 10-29 mL/min) *Enoxaparin/Lovenox 30 mg SQ BID (WT < 150 kg, CrCl > 30 mL/min) AND *Sequential Compression Device (SCD) Assessment and Plan - Assessment (1) Nausea, vomiting and diarrhea Code(s): R11.2 - Nausea with vomiting, unspecified; R19.7 - Diarrhea, unspecified Status: Acute Plan: Likely a/w overnight GI prep. Will provide IVF, anti-emetics. Have GI see pt for planned procedure. Outpt record review reveals mild anemia and her current nml Hb is likely due to hemoconcentration. VSS. Dr Vaughan evaluated pt in ER and will likely scope tomorrow AM. (2) Hyponatremia Code(s): E87.1 - Hypo-osmolality and hyponatremia Status: Acute Plan: Likely due to GI losses. Provide IVF. Monitor sodium. Her baseline outpt sodium is around 135 (3) Anxiety Code(s): F41.9 - Anxiety disorder, unspecified Status: Acute Plan: continue home meds (4) Hypertension Code(s): I10 - Essential (primary) hypertension Status: Acute Plan: continue home meds as tolerated (5) Chronic recurrent major depressive disorder Code(s): F33.9 - Major depressive disorder, recurrent, unspecified Status: Acute Plan: continue home meds - Plan Code Status: full Discussed Condition With: Pt, her , ER provider, Dr Vaughan
[2018-03-01] MEDS ORDERED: Magnesium Citrate Liq 300 ML Bottle PO ONE ×2 (09:18→18:00)
[2018-03-01] MEDS ORDERED: Morphine Sulfate Inj 2 MG/ML Vial IV.PUSH PRN (09:25)
[2018-03-01] MEDS ORDERED: Sod Chloride 0.9% Inj 1,000 ML IV.CONT SCH (09:30)
--- NOTE | 2018-03-01 09:32 | P.CONGI ---
History of Present Illness Consult date: 03/01/18 Consult reason: Anemia Chief complaint: nausea,vomiting,diarrhea,hyponatremia History of Present Illness: Patient is a pleasant 72-year-old female who was seen in our office recently for suppose it chronic anemia although her hemoglobin here on admission is normal she was advised to undergo an EGD and a colonoscopy but apparently with the prep yesterday the patient began to have pain nausea vomiting with abdominal discomfort and some diarrhea she denies ever seeing any hematemesis coffee-ground emesis melena or hematochezia she does report a diet that is rich in fiber but not so balanced currently patient feels weak fatigued with no further diarrhea and no further vomiting Review of Systems Review of systems Patient denies any headache dizziness blurry vision, but feels weak overall denies any chest pain shortness of breath cough fever chills, Denies any palpitations denies any polyuria dysuria hematuria, denies any numbness tingling , denies any skin rash pruritus or jaundice, denies any easy bruising or bleeding tendency, denies any recent change in mood PMFSH - History History Provided By: Patient, Family Member, Business Banking Officer / EMT - Medical History Medical History: Medical History (Last Updated 03/01/18 @ 08:29 by Leonid Dumont MD, PhD) Chronic recurrent major depressive disorder (Chronic) Anxiety (Chronic) Hypertension (Chronic) CKD (chronic kidney disease) stage 3, GFR 30-59 ml/min Chronic back pain Depression Factor V Leiden mutation GERD (gastroesophageal reflux disease) Hyperlipidemia Presence of implanted infusion pump - Surgical History Surgical History: Surgical History (Last Updated 03/01/18 @ 08:36 by Leonid Dumont MD, PhD) History of hip replacement History of vaginal hysterectomy Hx of breast reduction, elective Hx of colonoscopy Status post breast reduction Status post total hip replacement, bilateral - Family History Family History: Family History (Last Updated 03/01/18 @ 08:28 by Leonid Dumont MD, PhD) Father Laryngeal cancer Mother Alzheimer's dementia Family history of hypertension - Tobacco History Second Hand Smoke Exposure: No Tobacco Use In Past 30 Days: No Smoking Status: Former smoker Smoking End Date: 1979 - Alcohol History How Often Do You Have a Drink Containing Alcohol: Monthly or less - Substance Use History Substance History: No History of Abuse - Travel History Recent Travel in the [facility] Within the Last 8 Weeks: No Recent Travel Out of the Country Within the Last 8 Weeks: No - Immunization History Tetanus Immunization: Unsure Medications and Allergies Active Medications: Active Medications Sodium Chloride (Ns Inj) 1,000 mls @ 84 mls/hr IV.CONT .[id number] [facility] Last Admin: 03/01/18 07:34 Dose: 84 mls/hr Magnesium Citrate (Citroma Liq) 300 ml PO ONCE ONE Stop: 03/01/18 09:19 Magnesium Citrate (Citroma Liq) 300 ml PO ONCE ONE Stop: 03/01/18 18:01 Promethazine HCl (Phenergan) 25 mg PO ONCE ONE Stop: 03/01/18 17:31 Promethazine HCl (Phenergan) 25 mg PO ONCE ONE Stop: 03/01/18 09:23 Sodium Chloride (Ns Flush) 2 ml IV.FLUSH PRN PRN PRN Reason: FLUSH AFTER USING IV ACCESS Allergies Allergy/AdvReac Type Severity Reaction Status Date / Time cephalexin Allergy Severe PT STATES Verified 03/01/18 07:07 GEN ILLNESS, BLUE FINGERTIPS sulfamethoxazole Allergy Severe PT STATES Verified 03/01/18 07:07 GENERALIZED ILLNESS trimethoprim Allergy Severe PT STATES Verified 03/01/18 07:07 GENERALIZED ILLNESS Sulfa (Sulfonamide Allergy Unknown Swelling,TE Verified 03/01/18 07:07 Antibiotics) MP Home Medications Medication Instructions Recorded Confirmed Type atorvastatin 40 mg PO DAILY 03/01/18 03/01/18 History cholecalciferol (vitamin D3) 1,000 unit PO DAILY 03/01/18 03/01/18 History [Vitamin D3] clonazepam 0.5 mg PO BID 03/01/18 03/01/18 History diltiazem HCl 240 mg PO DAILY 03/01/18 03/01/18 History duloxetine 60 mg PO DAILY 03/01/18 03/01/18 History gabapentin 600 mg PO TID 03/01/18 03/01/18 History lactulose 20 g PO BID 03/01/18 03/01/18 History latanoprost 1 drp LEFT EYE QPM 03/01/18 03/01/18 History oxycodone-acetaminophen 1 tab PO BID PRN 03/01/18 03/01/18 History pantoprazole 40 mg PO BID 03/01/18 03/01/18 History tamsulosin 0.4 mg PO DAILY 03/01/18 03/01/18 History tizanidine 4 mg PO TID PRN 03/01/18 03/01/18 History trazodone 100 mg PO HS 03/01/18 03/01/18 History Exam Vital signs: Vital Signs 03/01/18 07:00 Temperature 98.4 F Pulse Rate 60 Respiratory Rate 14 Blood Pressure 151/67 H Pulse Oximetry 95 Intake & Output 02/28/18 03/01/18 03/01/18 18:59 06:59 18:59 Weight 79.5 kg - Constitutional no acute distress - Routine HEENT Exam Head: Present: normocephalic, atraumatic Eye: Present: EOMI, PERRL, normal accommodation ENT: Present: mucous membranes moist - Routine Neck Exam Present: supple. Absent: JVD, carotid bruit - Routine Respiratory Exam Present: CTA bilaterally - Routine Cardiovascular Exam Present: RRR, S1, S2. Absent: murmur, gallop, rubs - Routine Abdominal Exam Present: soft, normoactive bowel sounds. Absent: tenderness, distended, rebound - Routine Extremities Exam Absent: cyanosis, clubbing, edema - Routine Skin Exam Present: dry, warm - Routine Neurological Exam Present: alert, oriented X3 Results - Labs CBC & Chem 7: 03/01/18 07:15 03/01/18 07:15 Labs: Laboratory Results - last 24 hr 03/01/18 03/01/18 03/01/18 07:15 07:15 07:15 CBC w Diff Auto diff final WBC 5.8 RBC 4.57 Hgb 12.8 Hct 36.8 MCV 80.5 MCH 28.1 MCHC 34.9 RDW 13.7 Plt Count 289 MPV 7.4 Neut % (Auto) 78.1 H Lymph % (Auto) 13.7 [place] % (Auto) 6.9 Eos % (Auto) 0.4 Baso % (Auto) 0.9 Neut # (Auto) 4.5 Lymph # (Auto) 0.8 L [place] # (Auto) 0.4 Eos # (Auto) 0.0 Baso # (Auto) 0.1 WBC Differential . Differential Comment . Sodium 122 L* Potassium 4.0 Chloride 82 L Carbon Dioxide 31.5 Anion Gap 9 BUN 9 Creatinine 0.84 Estimated GFR 67 L Random Glucose 113 H Calcium 9.1 Magnesium 2.4 Total Bilirubin 0.8 AST 19 ALT 21 Alkaline Phosphatase 122 H Total Creatine Kinase 110 CK-MB (CK-2) 1.4 Troponin I Less than 0.02 L Total Protein 7.5 Albumin 3.7 Lipase 49 L - Imaging Impressions Abdomen X-Ray 03/01/18 07:00 CONCLUSION: Minimal gas distention otherwise negative Assessment and Plan - Plan Patient was being prepped for an EGD and a colonoscopy for supposed anemia with subsequent nausea vomiting and diarrhea and abdominal discomfort on admission to the ED she is found to be hyponatremic Patient to receive IV hydration and to have hyponatremia corrected per attending physician Patient educated on good balanced diet because apparently her diet at home is poor and iron Patient to receive magnesium citrate for colon prep while in the hospital and we will plan on pursuing an EGD and a colonoscopy tomorrow Further recommendations she will depend on her hospital course
[2018-03-01] MEDS: Duloxetine 60 MG DR Capsule PO SCH (11:03)
[2018-03-01] MEDS: Gabapentin 300 MG Capsule PO SCH ×2 (12:45→17:13)
--- NOTE | 2018-03-01 13:25 | ECG ---
Date Performed: 03/01/2018 Time Performed: 07:43:16 PTAGE: 72 years EKG: SINUS BRADYCARDIA MARKED LEFT AXIS DEVIATION LOW QRS VOLTAGE IN PRECORDIAL LEADS POSSIBLE A NTERIOR MYOCARDIAL INFARCTION ABNORMAL ECG PREVIOUS TRACING : 05/06/2015 10.20 DOCTOR: Madan Evangelista Interpretating Date/Time 03/01/2018 13:24:15
[2018-03-01 15:09] LABS: Alanine Aminotransferase 23 U/L (10-53); Albumin 3.6 g/dL (3.4-5.0); Alkaline Phosphatase 120 U/L (45-117); Anion Gap 8 meq/L (5-15); Aspartate Aminotransferase 30 U/L (15-37); Blood Urea Nitrogen 8 mg/dL (7-18); Calcium 8.8 mg/dL (8.5-10.1); Carbon Dioxide 24.7 meq/L (21.0-32.0); Chloride 91 meq/L (98-107); Glomerular Filtration Rate 60 mL/min (>89); Glucose,Random 145 mg/dL (74-106); Total Protein 7.8 g/dL (6.4-8.2)
[2018-03-01 15:22] LABS: Sodium 124 meq/L (136-145)
[2018-03-01 17:16] LABS: Bilirubin,Urine Negative (Negative); Clarity,Urine Clear (Clear); Glucose,Urine (UA) Negative (Negative); Leukocyte Esterase,Urine Negative (Negative); Nitrite,Urine Negative (Negative); PH,Urine 7.5 (5.0-8.5); Specific Gravity,Urine Less/Equal 1.005 (1.002-1.035); Urobilinogen,Urine 0.2 mg/dL (Less than 2)
[2018-03-01 17:19] LABS: Collection Time,Urine 1658 hours; Color,Urine Straw (Yellw/Straw)
[2018-03-01 17:20] LABS: Amorphous Sediment,Urine Few /hpf; Squamous Epithelial Cell,Urine 0-5 /hpf (0-5)
[2018-03-01] MEDS ORDERED: Latanoprost 0.005% Opth Drops 2.5 ML Bottle LEFT EYE SCH (18:00)
[2018-03-01] MEDS ORDERED: traZODone 100 MG Tablet PO SCH (21:00)
[2018-03-02 06:04] LABS: Baso % (Auto) 0.3 % (0.0-2.0); Eos # (Auto) 0.1 th/mm3 (0.0-0.4); Eos % (Auto) 2.1 % (0.0-4.0); Hematocrit 36.3 % (35.0-46.0); Hemoglobin 12.2 gm/dL (11.6-15.3); Lymph # (Auto) 1.5 th/mm3 (1.0-4.8); Lymph % (Auto) 21.8 % (9.0-44.0); Mean Corpuscular HGB Conc 33.6 % (32.0-36.0); Mean Corpuscular Volume 83.4 fL (80.0-100.0); Mono # (Auto) 0.7 th/mm3 (0.0-0.9); Neut # (Auto) 4.8 th/mm3 (1.8-7.7); Neut % (Auto) 65.8 % (16.0-70.0); Platelet Count 260 th/mm3 (150-450); Red Blood Count 4.35 mil/mm3 (4.00-5.30); White Blood Count 7.1 th/mm3 (4.0-11.0)
--- NOTE | 2018-03-02 06:34 | P.PN ---
Subjective Interval history: Patient reports she is feeling better this morning. No more nausea or vomiting. Still having some dark loose stools and tolerated the partial colonic prep overnight. She is about to be taken to the surgical suite for EGD and colonoscopy. Chronic pain controlled. Physical Exam Vital signs: Vital Signs 03/01/18 07:00 03/01/18 09:30 03/01/18 10:20 Temperature 98.4 F Pulse Rate 60 52 L 68 Respiratory Rate 14 16 16 Blood Pressure 151/67 H 137/73 142/64 H Pulse Oximetry 95 97 97 03/01/18 12:00 03/01/18 16:00 03/01/18 16:16 Temperature 96.4 F L 98.7 F 98.7 F Pulse Rate 54 L 64 64 Respiratory Rate 18 18 18 Blood Pressure 147/64 H 140/63 140/63 Pulse Oximetry 97 97 97 03/01/18 20:00 03/02/18 00:00 Temperature 97.5 F L 97 F L Pulse Rate 55 L 61 Respiratory Rate 20 20 Blood Pressure 135/60 138/78 Pulse Oximetry 98 94 L Intake & Output 03/01/18 03/01/18 03/02/18 06:59 18:59 06:59 Intake Total 1999 Balance 1999 Weight 79.5 kg 83.915 kg Intake: IV 1999 NS Inj 1,000 ML @ 100 mls/hr IV 1999 .CONT .Q10H [facility] Rx#:[id number] Other: # Voids 3 # Bowel Movements 2 Narrative: GENERAL: Awake and alert. No acute distress. Color overall looks better. SKIN: Warm and dry. HEAD: Atraumatic. Normocephalic. EYES: Pupils equal and round. No scleral icterus. No injection or drainage. ENT: No nasal bleeding or discharge. Mucous membranes pink and moist. NECK: Trachea midline. No JVD. CARDIOVASCULAR: Regular rate and rhythm. No significant murmurs. Rate in 60-70s RESPIRATORY: No accessory muscle use. Clear to auscultation. Breath sounds equal bilaterally. GASTROINTESTINAL: Abdomen soft, nondistended. No tenderness to palpation. No g /r, BS normal. MUSCULOSKELETAL: Extremities without clubbing, cyanosis, or edema. No obvious deformities. NEUROLOGICAL: Awake and alert. No obvious cranial nerve deficits. Motor grossly within normal limits. Five out of 5 muscle strength in the arms and legs. Normal speech. PSYCHIATRIC: Appropriate mood and affect; insight and judgment normal. Results - Labs CBC & Chem 7: 03/02/18 05:37 03/01/18 14:36 Laboratory Results - last 24 hr 03/01/18 03/01/18 03/01/18 07:15 07:15 07:15 CBC w Diff Auto diff final WBC 5.8 RBC 4.57 Hgb 12.8 Hct 36.8 MCV 80.5 MCH 28.1 MCHC 34.9 RDW 13.7 Plt Count 289 MPV 7.4 Neut % (Auto) 78.1 H Lymph % (Auto) 13.7 [place] % (Auto) 6.9 Eos % (Auto) 0.4 Baso % (Auto) 0.9 Neut # (Auto) 4.5 Lymph # (Auto) 0.[address] [place] # (Auto) 0.4 Eos # (Auto) 0.0 Baso # (Auto) 0.1 WBC Differential . Differential Comment . Sodium 122 L* Potassium 4.0 Chloride 82 L Carbon Dioxide 31.5 Anion Gap 9 BUN 9 Creatinine 0.84 Estimated GFR 67 L Random Glucose 113 H Calcium 9.1 Magnesium 2.4 Total Bilirubin 0.8 AST 19 ALT 21 Alkaline Phosphatase 122 H Total Creatine Kinase 110 CK-MB (CK-2) 1.4 Troponin I Less than 0.02 L Total Protein 7.5 Albumin 3.7 Lipase 49 L Ur Collection Type Urine Color Urine Clarity Urine pH Ur Specific [place] Urine Protein Urine Glucose (UA) Urine Ketones Urine Occult Blood Urine Nitrate Urine Bilirubin Urine Urobilinogen Ur Leukocyte Esterase Ur Squamous Epith Cells Amorphous Sediment Micro UA Comment Ur Microscopic Review Urine Culture Comments Urine Collection Time 03/01/18 03/01/18 03/02/18 14:36 17:00 05:37 CBC w Diff Auto diff final WBC 7.1 RBC 4.35 Hgb 12.2 Hct 36.3 MCV 83.4 MCH 28.0 MCHC 33.6 RDW 14.0 Plt Count 260 MPV 7.0 Neut % (Auto) 65.8 Lymph % (Auto) 21.8 [place] % (Auto) 10.0 H Eos % (Auto) 2.1 Baso % (Auto) 0.3 Neut # (Auto) 4.8 Lymph # (Auto) 1.5 [place] # (Auto) 0.7 Eos # (Auto) 0.1 Baso # (Auto) 0.0 WBC Differential . Differential Comment . Sodium 124 L* Potassium 4.0 Chloride 91 L D Carbon Dioxide 24.7 Anion Gap 8 BUN 8 Creatinine 0.93 Estimated GFR 60 L Random Glucose 145 H Calcium 8.8 Magnesium Total Bilirubin 0.6 AST 30 ALT 23 Alkaline Phosphatase 120 H Total Creatine Kinase CK-MB (CK-2) Troponin I Total Protein 7.8 Albumin 3.6 Lipase Ur Collection Type Clean catch Urine Color Straw Urine Clarity Clear Urine pH 7.5 Ur Specific [place] Less/equal 1.005 Urine Protein Negative Urine Glucose (UA) Negative Urine Ketones Negative Urine Occult Blood Negative Urine Nitrate Negative Urine Bilirubin Negative Urine Urobilinogen 0.2 Ur Leukocyte Esterase Negative Ur Squamous Epith Cells 0-5 Amorphous Sediment Few H Micro UA Comment Culture not ind Ur Microscopic Review Microscopic reviewed Urine Culture Comments Culture not ind Urine Collection Time 1658 - Imaging Impressions Abdomen X-Ray 03/01/18 07:00 CONCLUSION: Minimal gas distention otherwise negative Assessment and Plan - Assessment (1) Nausea, vomiting and diarrhea Code(s): R11.2 - Nausea with vomiting, unspecified; R19.7 - Diarrhea, unspecified Status: Acute Plan: Likely a/w overnight GI prep. Clinically improved. Will have EGD and colonoscopy done this morning. We will see how she tolerates diet after that. Possible discharge home later today. her hemoglobin has remained stable. Sodium pending this morning. (2) Hyponatremia Code(s): E87.1 - Hypo-osmolality and hyponatremia Status: Acute Plan: Likely due to GI losses. Provide IVF. Monitor sodium. Her baseline outpt sodium is around 135 (3) Anxiety Code(s): F41.9 - Anxiety disorder, unspecified Status: Chronic Plan: continue home meds (4) Hypertension Code(s): I10 - Essential (primary) hypertension Status: Chronic Plan: continue home meds as tolerated Well controlled. (5) Chronic recurrent major depressive disorder Code(s): F33.9 - Major depressive disorder, recurrent, unspecified Status: Chronic Plan: continue home meds - Plan Discharge Planning: Hopefully discharge home later today or tomorrow.
[2018-03-02 06:45] LABS: Alanine Aminotransferase 24 U/L (10-53); Albumin 3.4 g/dL (3.4-5.0); Alkaline Phosphatase 100 U/L (45-117); Anion Gap 5 meq/L (5-15); Aspartate Aminotransferase 26 U/L (15-37); Blood Urea Nitrogen 7 mg/dL (7-18); Calcium 8.3 mg/dL (8.5-10.1); Carbon Dioxide 35.5 meq/L (21.0-32.0); Chloride 99 meq/L (98-107); Glomerular Filtration Rate 67 mL/min (>89); Glucose,Random 89 mg/dL (74-106); Potassium 3.1 meq/L (3.5-5.1); Sodium 139 meq/L (136-145); Total Protein 6.8 g/dL (6.4-8.2)
[2018-03-02] MEDS ORDERED: fentaNYL Citrate Inj 100 MCG/2 ML Ampul ONE (08:20)
--- NOTE | 2018-03-02 08:32 | P.PCN ---
Date of procedure: 03/02/18 Pre-op diagnosis: Anemia, nausea vomiting, diarrhea Procedure: PROCEDURE PERFORMED EGD with biopsies followed by colonoscopy with snare polypectomy and biopsy PROCEDURE: The procedure, risks and benefits were discussed with Patient/POA and informed consent was obtained. Anesthesia sedated Patient with Diprivan. Patient was placed in the left lateral decubitus position. EGD: The Pentax videoscope was introduced through the oropharynx and advanced to the second portion of the duodenum under direct visualization. Retroflexion was performed in the stomach. FINDINGS: The esophagus the distal esophageal mucosa was erythemic and somewhat friable consistent with esophagitis grade D The stomach there was patchy erythema in the antrum but no ulcerations no erosions antral biopsies were taken for further evaluation retroflexion was unremarkable The duodenum this was normal Colonoscopy: The Pentax videoscope was introduced through the rectum and advanced to cecum where the ileocecal valve and appendiceal orifice were identified. Retroflexion was performed in the rectum. Colonic prep was good FINDINGS: Colonic withdrawal time greater than 6 minutes. As the scope was slowly withdrawn colonic mucosa was carefully inspected the patient was noted to have 2 polyps one in the distal transverse colon and the other in the descending colon both sessile medium in size both excised using cold snare technique and retrieved for further evaluation the patient was also noted to have nodular mucosa in the rectum of unclear significance this was biopsied otherwise colonic examination was unremarkable and within normal limits ESTIMATED BLOOD LOSS: None SPECIMENS REMOVED: Gastric and colon biopsies COMPLICATIONS: None IMPRESSION: Esophagitis Gastritis Colon polyps Nodular rectal mucosa PLAN: Await biopsies Recommend pantoprazole 40 mg daily Follow-up with GI in 3-4 weeks EGD in 2 months CBC prior to office visit Okay for discharge from a GI standpoint Anesthesia: MAC Surgeon: Luis Vaughan Condition: stable Disposition: floor
[2018-03-02] MEDS ORDERED: dilTIAZem CD 240 MG Capsule PO SCH (09:00)
[2018-03-02] MEDS ORDERED: Gabapentin 300 MG Capsule PO SCH (09:00)
[2018-03-02] MEDS: Sod Chloride 0.9% Inj 1,000 ML IV.CONT SCH (09:36)
[2018-03-02] MEDS: Duloxetine 60 MG DR Capsule PO SCH (09:49)
== END 2018-03-02 14:39 | disposition home or self-care (01) ==
LOC: PHEDA 06:56 → PHED 06:56 → PH3 10:29
PROVIDERS: ADMIT Family Medicine; ATTEND Family Medicine